=== PATIENT | male | born 1940 ===

== ENCOUNTER → 2024-07-18 | Outpatient (CLI) | payer MEDICARE ==
[2024-07-19 10:22] LABS: Source, Urine Voided
[2024-07-19 10:59] LABS: Appearance, Urine Clear (Clear); Bilirubin, Urine Neg (Neg); Blood, Urine Neg (Neg); Color, Urine Yellow (P-Yellow); Glucose Qualitative, Urine Neg (Neg); Ketones, Urine Neg (Neg); Leukocyte Esterase, Urine Neg (Neg); Nitrite, Urine Neg (Neg); Protein, Urine 2+ (Neg); Urobilinogen, Urine NORM (Normal)
[2024-07-19 11:13] LABS: Bacteria Not Seen /hpf; Red Blood Cells, Urine Not Seen /hpf (0-2); Squamous Epithelial Cells Rare /hpf (Few); White Blood Cells, Urine Not Seen /hpf (0-5)
== END ==
LOC: LAB SHORT 10:19 → LAB 10:19
PROVIDERS: Internal Medicine
DX: N39.0 Urinary tract infection, site not specified (principal)
CPT/HCPCS: 81001

== ENCOUNTER 2025-05-23 04:27 | Inpatient (IN) | payer MEDICARE ==
[~2025-05-23] VITALS: Ht 172.7 cm; Wt 66.8 kg
[2025-05-23 04:58] LABS: BASOPHILS ABSOLUTE AUTO 0.03 K/mm3 (0.00-0.23); BASOPHILS PERCENT AUTO 0 % (0-2); EOSINOPHILS ABSOLUTE AUTO 0.02 K/mm3 (0.00-0.68); EOSINOPHILS PERCENT AUTO 0 % (0-6); Hematocrit 34.5 % (37.0-53.0); Hemoglobin 11.1 g/dL (13.5-17.5); IMMATURE GRAN ABSOLUTE AUTO 0.04 K/mm3 (0.00-0.10); IMMATURE GRAN PERCENT AUTO 0 % (0-1); LYMPHOCYTES PERCENT AUTO 8 % (21-46); MONOCYTES ABSOLUTE AUTO 0.67 K/mm3 (0.16-1.47); MONOCYTES PERCENT AUTO 7 % (4-13); Mean Corpuscular HGB 28.8 pg (26.0-34.0); Mean Corpuscular HGB Conc 32.2 g/dL (31.5-36.5); Mean Corpuscular Volume 89 fL (80-100); Mean Platelet Volume 10.1 fL (9.1-12.4); NEUTROPHILS PERCENT AUTO 84 % (41-73); Platelet Count 144 K/mm3 (150-400); RDW Coefficient Variation 14.3 % (11.7-14.2); RDW Standard Deviation 46.8 fL (35.1-46.3); Red Blood Cell Count 3.86 M/mm3 (4.30-5.90); White Blood Cell Count 9.96 K/mm3 (4.00-11.30)
[2025-05-23 05:17] LABS: Albumin, Blood 3.3 g/dL (3.4-5.0); Albumin/Globulin Ratio 1.1 (0.8-1.8); Bilirubin, Total 0.9 mg/dL (0.1-1.0); Calcium, Blood 8.3 mg/dL (8.5-10.1); Creatinine, Blood 1.26 mg/dL (0.60-1.20); Potassium, Blood 3.5 mmol/L (3.5-5.5); Total Protein, Blood 6.3 g/dL (6.4-8.2)
[2025-05-23] MEDS ORDERED: Ipratropium/Albuterol SulF 2.5-0.5MG/3 ML Amp INH ONE (05:20)
[2025-05-23 06:01] LABS: Influenza A, PCR NEGATIVE (NEGATIVE); Influenza B, PCR NEGATIVE (NEGATIVE); Resp Syncytial Virus, PCR NEGATIVE (NEGATIVE); SARS-Cov-2 (COVID-19) PCR, MMC NEGATIVE (NEGATIVE)
[2025-05-23] MEDS ORDERED: Albuterol 2.5 MG/3 ML VIAL INH PRN (06:15)
[2025-05-23 06:20] LABS: Source, Urine Clean Catch
[2025-05-23] MEDS ORDERED: Acetaminophen 650 MG Supp PR PRN (06:20)
[2025-05-23] MEDS ORDERED: Acetaminophen 325 MG TABLET PO PRN (06:20)
[2025-05-23 06:25] LABS: Appearance, Urine Clear (Clear); Bilirubin, Urine Neg (Neg); Blood, Urine 1+ (Neg); Color, Urine Yellow (P-Yellow); Glucose Qualitative, Urine Neg (Neg); Ketones, Urine 2+ (Neg); Leukocyte Esterase, Urine Neg (Neg); Nitrite, Urine Neg (Neg); Protein, Urine 2+ (Neg); Specific Gravity, Urine 1.025 (1.003-1.022); Urobilinogen, Urine NORM (Normal)
[2025-05-23] MEDS ORDERED: Ampicillin Sod/Sulbactam Sod 3 GM in NS 100 ML IV SCH (06:30)
[2025-05-23 06:33] LABS: Amorphous Light (0-Heavy); Bacteria Rare /hpf; Granular Casts 0-2 /lpf (0); Hyaline Casts 0-2 /lpf (0-2); Squamous Epithelial Cells Few /hpf (Few); White Blood Cells, Urine 0-2 /hpf (0-5)
[2025-05-23 06:38] LABS: Base Excess Venous 2.9 mmol/L; Bicarbonate Venous 26.5 mmol/L (24.0-30.0); PCO2 Venous 46.5 mmHg (38-42); pH Blood Venous 7.39 (7.34-7.37)
[2025-05-23] MEDS ORDERED: Enoxaparin 40 MG/0.4 ML SYR SC SCH (09:00)
[2025-05-23 14:15] VITALS: BP 143/93
[2025-05-23] MEDS ORDERED: FLUDROCORTISON0.1 M1 PO (14:37)
[2025-05-23] MEDS ORDERED: MIRALAX17 GM PO (14:38)
[2025-05-23] MEDS ORDERED: QUET25 PO (14:39)
[2025-05-23] MEDS ORDERED: TAMS.4ER PO ×2 (14:40→15:08)
[2025-05-23] MEDS ORDERED: MIDO5 PO (14:43)
[2025-05-23] MEDS ORDERED: NYSTRIT TOP ×2 (14:46→15:02)
[2025-05-23] MEDS ORDERED: SENNA LAXATIVE8.6 MG PO (14:52)
[2025-05-23] MEDS ORDERED: HYDR1TAB94 PO (14:57)
[2025-05-23] MEDS ORDERED: ACET500 PO (14:57)
[2025-05-23] MEDS ORDERED: ONELAX10 MG PR (14:58)
[2025-05-23] MEDS ORDERED: LOPE2C PO (14:59)
[2025-05-23] MEDS ORDERED: LORA.5 PO (15:00)
[2025-05-23] MEDS ORDERED: DULCOLAX400 MG/5 M PO (15:02)
[2025-05-23] MEDS ORDERED: EXELON1 EAC1 TD (15:03)
[2025-05-23] MEDS ORDERED: FAMO20 PO (15:05)
[2025-05-23] MEDS ORDERED: Amlodipine Bes2.5 MG PO (15:05)
[2025-05-23] MEDS ORDERED: FLUDROCORTISON0.1 M2 PO (15:06)
[2025-05-23] MEDS ORDERED: Scopolamine Hydrobromide Patch TOP PRN (15:45)
[2025-05-23] MEDS ORDERED: LORazepam 1 MG Tab PO PRN (15:45)
[2025-05-23] MEDS ORDERED: Atropine Sulfate 1% Opth Soln 2ML BTL SL PRN (15:45)
[2025-05-23] MEDS ORDERED: Morphine Sulfate 20 MG/1ML 1 ML Oral Syringe SL PRN (15:45)
--- NOTE | 2025-05-23 16:01 | NUR ---
ASSESSED PATIENT IN THE ED. PT WAS NOT WAKING UP TO VERBAL OR PHYSICAL STIMULI. PT ACESSORY BREATHING, PALE, AND AGITATED MOVMENT. CALLED PATIENTS DAUGHTER BLANCO. DISCUSSED HIS DISEASE PROGESSION. SHE EXPRESSED THAT HE WAS PREVIOUSLY ON HOSPICE GRADUATED ABOUT A MONTH AGO, BUT HOSPICE AND COMFORT ARE STILL THEIR GOALS OF CARE FOR [place]. SHE IS AGREEABLE TO HAVE HIM ON COMFORT CARE HERE. ATTEMPTED TO REACH PATIENTS OTHER DAUGHTER RANDA UNABLE TO LEAVE MESSAGE AT THIS TIME. RELAYED CONVERSATION TO PROVIDER AND CC ORDERS PLACED. CALLED LARA AT [facility] TO UPDATE THAT PATIENT WAS BACK IN THE HOSPITAL AND FAMILY IS REQUESTING RESUMPTION OF HOSPICE CARE.
--- NOTE | 2025-05-23 16:13 | NUR ---
ADMIT NOTE PATIENT BROUGHT UP FROM ER ON 3L NC. PT ORENTED TO SELF ONLY, CONFUSED AND PARANOID. NOT ABLE TO COMPLETE BEDSIDE SWALLOW EVAL AT THIS TIME. REDNESS TO COCCYX AND SCROTUM. CLEANSED AREA AND PLACED CLEAN BRIEF. BLANABLE. HEELS BOGGY. SKIN PALE. PALLIATIVE CONSULTED. ELECTED TO PLACE ON COMFORT MEASURES. CONT PULSE OX PLACED PRIOR TO START OF COMFORT CARE AND SATTING ABOVE 92% ON ROOM AIR. SPUTUM CX PENDING. CONTINENT/INCONT. IV TO RIGHT FOREARM. UNABLE TO MAKE NEEDS KNOWN HOWEVER DENIES PAIN.
[2025-05-23] MEDS ORDERED: NS 250 ML IV PRN (16:55)
--- NOTE | 2025-05-24 05:57 | NUR ---
SHIFT SUMMARY: Pt is admitted for acute hypoxemic respiratory failure and is a DNR. is on comfort care. Is alert and able to make some needs known. ADLs have been a mix of 1-2 depending on activity. No pain or discomfort noted by staff.
[2025-05-24 08:30] VITALS: BP 177/105
[2025-05-24] MEDS ORDERED: Magnesium Hydroxide Conc 10 ML UDC PO PRN (12:45)
[2025-05-24] MEDS ORDERED: Bisacodyl 10 MG Supp PR PRN (12:45)
[2025-05-24] MEDS ORDERED: AmLODIPine Besylate 5 MG Tab PO SCH (13:00)
[2025-05-24] MEDS ORDERED: Sennosides 8.6 MG Tab PO PRN (13:10)
--- NOTE | 2025-05-24 13:52 | NUR ---
MET WITH PATIENT AND AND HIS DAUGHTER RANDA. DISCUSSED GOALS OF CARE WITH DAUGHTER. SHE EXPRESSED SHE WOULD LIKE US TO DISCUSS WITH [facility] TO GUIDE US IN DECISION TO REINSTATE HOSPICE. CALLED [facility] TWICE. PATIENT IS MORE AWAKE AND RESPONSIVE TODAY.
--- NOTE | 2025-05-24 16:33 | NUR ---
PATIENT HAS REMAINED IN BED THISSHIFT. REPOSITIONED Q2 AND PRN. MEDICATED FOR PAIN ONCE WITH TYLENOL. PATIENT ALSO GIVEN ATIVAN PO FOR AGITATION. ADEQUATE RELIEF FROM BOTH. CONDOMN CATH INPLACE FOR URINARY OUTPUT. PATIENT PULLED CONNECTION APART ONCE AND CONNECTION WAS THORUGHLY CLEANED AND RECONNECTED. CONDOMN CATH NOT DISPLACED. NO BM THIS SHIFT. PLAN OF CARE IS REASSESSING FOR PLACEMENT BACK ON HOSPICE AT DISCHARGE.
[2025-05-24 16:38] VITALS: BP 151/104
--- NOTE | 2025-05-24 16:43 | NUR ---
ROUNDED ON PT THIS AM. PT IS RESTING IN BED APPEARS COMFORTABLE AT THIS TIME. DISCUSSED WITH BEDSIDE RN. PT HAD RECENTLY RECIEVED MEDICATION WITH GOOD EFFECT. ASSESSED PT THIS AFTERNOON. INCREASED RESPIRATIONS. PT APPEARS UNCOMFORTABLE. ASSISTED IN REPOSITIONING AND BEDSIDE RN PROVIDED MEDICATION. REASSESSED SHORTLY AFTERWARDS MEDICATION EFFECTIVE. PT DID NOT AROUSE OR RESPOND TO REPOSITIONING. PT IS BEGINNING TO MOTTLE. DISCUSSED WITH CARE COORDINATION PT IS UNSTABLE TO TRANSFER HE IS ACTIVLY TRANSITIONING. ROUNDED ON PT THIS EVENING. CALL PLACED TO DAUGHTER TO UPDATE ON PTS STATUS. SHE REPORTED THAT FAMILY IS NOT COMING IN TONIGHT. PROVIDED THERAPUTIC CONVERSATION.
--- NOTE | 2025-05-24 16:47 | NUR ---
CALL PLACED TO LARA [facility] TO DISCUSS READMISSION TO HOSPICE SERVICES. DISCUSSED CASE WITH CARE COORDINATION. WHO HAD SPOKEN TO THE RN AT [facility] AND EXPRESSED INTREST IN RESUMPTION OF HOSPICE AND THAT PATIENT HAS RECENTLY BEEN ASPIRATING.
[2025-05-24] MEDS ORDERED: QUEtiapine Fumarate 25 MG Tab PO SCH (21:00)
[2025-05-25] MEDS ORDERED: Famotidine 20 MG Tab PO SCH (09:00)
[2025-05-25] MEDS ORDERED: RIVASTIGMINE 13.3 MG/24 HR TD SCH (09:00)
[2025-05-25] MEDS ORDERED: Tamsulosin HCl 0.4 MG Cap PO SCH (09:00)
[2025-05-25] MEDS ORDERED: ATROPINE 1% EY1 EACH SL (13:28)
[2025-05-25] MEDS ORDERED: MORP20L SL (13:31)
[2025-05-25] MEDS ORDERED: TRANSDERM-SCOP1 EA13 TD (13:32)
--- NOTE | 2025-05-25 14:58 | NUR ---
ASSUMED CARE OF PT. A/O X ? PT NOT ABLE TO ANSWER QUESTION APPROPRIATLY. ATTEMPTED TO TURN AND ENC PT TO OPEN EYES BUT HE GREW UPSET AND WAS AGRESSIVE BY SWINNING HIS FIST. PT WAS EASILY REDIRECTED AND FINALLY ALLOWED ME TO TURN HIM BUT HE WOULDNT OPEN HIS EYE SO ORAL MEDICATION WAS HELD.PT DIDNOT WANT TO EAT EITHER. FAMILY ARRIVED AND WERE ASKING ABOUT PLANS FOR DISCHARGE BUT MD HAS NOT COME TO SEE PT YET. WILL CONT TO MONITOR .
--- NOTE | 2025-05-25 15:18 | NUR ---
DISCHARGE ORDERS LIZEN FOR TRANSFER TO FACILITY. PT GIVEN BEDBATH, IV DCED AMBULANCE HER TO TRANSFER AT 1330.
--- NOTE | 2025-05-25 15:28 | NUR ---
CASE CONFRENCE- DISCUSSED WITH PRIMARY CARE SALES REPRESENTATIVE AND PROVIDER. PATIENT GOING HOME WITH HOSPICE TODAY. COPY OF POLST FAXED TO REGISTRY, SENT TO MEDICAL RECORDS AND PLACED IN CHART FOR DISCHARGE
== END 2025-05-25 13:40 | disposition hospice, home (50) | DRG 177 ==
LOC: ER 04:27 → ERHOLD 06:14 → MEDS 06:14
PROVIDERS: Emergency Medicine; ADMIT Student in an Organized Health Care Education/Training Program
DX: J69.0 Pneumonitis due to inhalation of food and vomit (principal); G92.8 Other toxic encephalopathy; J96.01 Acute respiratory failure with hypoxia; F02.818 Dementia in other diseases classified elsewhere, unspecified severity, with other behavioral disturbance; G31.83 Neurocognitive disorder with Lewy bodies; Z51.5 Encounter for palliative care; Z66 Do not resuscitate; Z99.81 Dependence on supplemental oxygen
CPT/HCPCS: 0241U; 31720; 51701; 51798; 71046; 80053; 81001; 82803; 83880; 84145; 84484; 85025; 87070; 87205; 93005; 93010; 94640; 94664; 99285-25; A9270; J0295; J1650; J7050